=== PATIENT | female | born 1945 | race Caucasian/White ===

== ENCOUNTER 2016-10-18 09:50 | Day surgery (SDC) | payer MEDICARE, BC ==
[~2016-10-18 09:50] MED LIST: Acetaminophen TAB* 325 MG PO PRN; Buffered Lidocaine 0.9% SYRIN* 5 ML/SYR SYRINGE INTRADERM ONE; Ondansetron INJ* 2 MG/ML VIAL IV ONE
[2016-10-18] MEDS ORDERED: Ondansetron INJ* 2 MG/ML VIAL ONE (10:14)
[2016-10-18] MEDS ORDERED: Midazolam* 1 MG/ML 2 ML VIAL (2 MG) ONE ×2 (11:46→12:31)
[2016-10-18 13:00] VITALS: BP 147/79
[2016-10-18] MEDS ORDERED: acetaZOLAMIDE TAB* 250 MG ONE (17:06)
[2016-10-18] MEDS ORDERED: Phenylephrine 2.5% OPTH.SOL* 2 ML BTL ONE (17:06)
[2016-10-18] MEDS ORDERED: Cyclopentolate 1% OPTH.SOL* 2 ML BTL ONE (17:06)
[2016-10-18] MEDS ORDERED: Lidocaine 1% MPF* 2 ML VIAL ONE (17:06)
[2016-10-18] MEDS ORDERED: Flurbiprofen 0.03% OPTH.SOL* 2.5 ML BTL ONE (17:06)
[2016-10-18] MEDS ORDERED: Neomycin/Polymy/Dex OPTH.SUSP* MAXITROL 0.1% 5 ML ONE (17:06)
[2016-10-18] MEDS ORDERED: Proparacaine 0.5% OPHTH.SOL* 15 ML BTL ONE (17:07)
[2016-10-18] MEDS ORDERED: Povidone Iodine 5% OPTH* 30 ML BTL ONE (17:07)
[2016-10-18] MEDS ORDERED: Ketorolac 0.5% OPHTH (NF) 0.5 % 5 ML BTL ONE (17:08)
--- NOTE | 2016-10-19 03:14 | OP ---
DATE OF OPERATION: 10/18/16 [facility] DATE OF : 41 SURGEON: Bayron Aragon M.D. PREOPERATIVE DIAGNOSIS: Cataract, left eye. POSTOPERATIVE DIAGNOSIS: Cataract, left eye. OPERATIVE PROCEDURE: Phacoemulsification, left eye with IOL. DESCRIPTION OF PROCEDURE: The patient was brought to the operating room after being given 1/2% Alcaine with epinephrine drops in the preoperative area. The eye was prepped and draped in the usual sterile fashion. Sterile drape and eyelid speculum were placed. Again, topical 1/2% Alcaine with epinephrine was given. A paracentesis incision was made at the 3 o'clock position with the No.75 blade. Clear cornea incision 2.2 x 2.2-mm was created at the 6 o'clock position starting at the anterior limbus using the 2.2-mm keratome. The anterior chamber was irrigated with 0.4 mL of 1% non-preservative intracameral lidocaine and filled with DisCoVisc. A capsulorrhexis was completed using the cystotome and the Utrata forceps. Hydrodissection was performed with balanced salt solution. The lens nucleus was removed with the Phacoemulsification handpiece without incident. Cortex was removed with the irrigation-aspiration handpiece. The capsular bag was re-inflated using DisCoVisc and an [id number] implant was inserted with the shooter. The pupil was very small prior to capsulorrhexis and Malyugin ring was used to dilate the pupil and removed after insertion of the lens. The irrigation-aspiration handpiece was used to remove all residual DisCoVisc. The eye was refilled with balanced salt solution and the wound checked and found to be watertight. Topical Maxitrol drops were given. [id number] #: [id number] MTDD
== END 2016-10-18 13:11 | disposition home or self-care (01) ==
LOC: OREAST 09:50
PROVIDERS: ATTEND Specialist
DX: H25.812 Combined forms of age-related cataract, left eye (principal); Z87.891 Personal history of nicotine dependence; I10 Essential (primary) hypertension
CPT/HCPCS: A9270-GY; J2250; J2405; V2632

== ENCOUNTER 2016-10-25 07:43 | Day surgery (SDC) | payer MEDICARE, BC ==
[~2016-10-25 07:43] MED LIST changes: -Ondansetron INJ* 2 MG/ML VIAL IV ONE
[2016-10-25] MEDS ORDERED: Ketorolac 0.5% OPHTH (NF) 0.5 % 5 ML BTL ONE (09:05)
[2016-10-25] MEDS ORDERED: Povidone Iodine 5% OPTH* 30 ML BTL ONE (09:06)
[2016-10-25] MEDS ORDERED: acetaZOLAMIDE TAB* 250 MG ONE (09:06)
[2016-10-25] MEDS ORDERED: Cyclopentolate 1% OPTH.SOL* 2 ML BTL ONE (09:06)
[2016-10-25] MEDS ORDERED: Buffered Lidocaine 0.9% SYRIN* 5 ML/SYR SYRINGE ONE (09:06)
[2016-10-25] MEDS ORDERED: Proparacaine 0.5% OPHTH.SOL* 15 ML BTL ONE (09:06)
[2016-10-25] MEDS ORDERED: Neomycin/Polymy/Dex OPTH.SUSP* MAXITROL 0.1% 5 ML ONE (09:06)
[2016-10-25] MEDS ORDERED: Phenylephrine 2.5% OPTH.SOL* 2 ML BTL ONE (09:06)
[2016-10-25] MEDS ORDERED: Lidocaine 1% MPF* 2 ML VIAL ONE (09:06)
[2016-10-25] MEDS ORDERED: Midazolam* 1 MG/ML 2 ML VIAL (2 MG) ONE ×2 (09:32→10:10)
[2016-10-25] MEDS ORDERED: fentaNYL* 50 MCG/ML 2 ML VIAL (100 MCG VIAL) ONE (09:32)
[2016-10-25] MEDS ORDERED: Ondansetron INJ* 2 MG/ML VIAL ONE (09:32)
[2016-10-25 10:34] VITALS: BP 133/65
--- NOTE | 2016-10-26 04:07 | OP ---
DATE OF OPERATION: 10/25/16 - [facility] DATE OF : 41 SURGEON: Bayron Aragon MD PREOPERATIVE DIAGNOSIS: Cataract, right eye. POSTOPERATIVE DIAGNOSIS: Cataract, right eye. OPERATIVE PROCEDURE: Phacoemulsification, right eye with IOL. DESCRIPTION OF PROCEDURE: The patient was brought to the operating room after being given 1/2% Alcaine with epinephrine drops in the preoperative area. The eye was prepped and draped in the usual sterile fashion. Sterile drape and eyelid speculum were placed. Again, topical 1/2% Alcaine with epinephrine was given. A paracentesis incision was made at the 9 o'clock position with the No.75 blade. Clear cornea incision 2.2 x 2.2-mm was created at the 12 o'clock position starting at the anterior limbus using the 2.2-mm keratome. The anterior chamber was irrigated with 0.4 mL of 1% non-preservative intracameral lidocaine and filled with DisCoVisc. A capsulorrhexis was completed using the cystotome and the Utrata forceps. Hydrodissection was performed with balanced salt solution. The lens nucleus was removed with the Phacoemulsification handpiece without incident. Cortex was removed with the irrigation-aspiration handpiece. The capsular bag was re-inflated using DisCoVisc and an [id number] implant was inserted with the shooter. The Irrigation-aspiration handpiece was used to remove all residual DisCoVisc. The eye was refilled with balanced salt solution and the wound checked and found to be watertight. Topical Maxitrol drops were given. The pupil was only 3 mm. Prior to capsulorrhexis, a Malyugin ring was used to dilate the pupil, removed after the insertion of the lens. Indication for complex cataract surgery: Iris abnormalities requiring pupil dilation device. [id number] #: [id number] [facility]
== END 2016-10-25 10:43 | disposition home or self-care (01) ==
LOC: OREAST 07:43
PROVIDERS: ATTEND Specialist
DX: H25.811 Combined forms of age-related cataract, right eye (principal); Q13.2 Other congenital malformations of iris; I10 Essential (primary) hypertension
CPT/HCPCS: A9270-GY; J2250; J2405; J3010; V2632

== ENCOUNTER 2017-10-24 02:19 | Inpatient (IN) | payer BC, MEDICARE ==
[2017-10-24] MEDS ORDERED: NS 0.9% 1000 ML* 2,000 ML IV ONE (02:40)
[2017-10-24] MEDS ORDERED: Ondansetron INJ* 2 MG/ML VIAL IV ONE (02:40)
[2017-10-24] MEDS ORDERED: Morphine VIAL* 10 MG/ML 1 ML VIAL IV ONE (02:40)
--- NOTE | 2017-10-24 02:42 | ED ---
Abdominal Pain/Female - HPI Summary HPI Summary: This patient is a 72 year old F presenting to [facility] accompanied by friend with a chief complaint of RUQ abd pain that began yesterday. The patient rates the pain 10/10 in severity. Symptoms aggravated by nothing. Symptoms alleviated by nothing. Patient reports nausea, vomiting, and fever. Patient denies diarrhea. Patient reports having similar episodes previously, but these episodes have resolved on their own. - History of Current Complaint Chief Complaint: EDAbdPain Stated Complaint: ABD PAIN Time Seen by Provider: 10/24/17 02:37 Hx Obtained From: Patient ?: No Onset/Duration: Sudden Onset, Lasting Days, Still Present Timing: Constant Pain Intensity: 10 Allergies/Adverse Reactions: Allergies Allergy/AdvReac Type Severity Reaction Status Date / Time amoxicillin Allergy Vomiting Verified 10/24/17 02:24 Penicillins Allergy Vomiting Verified 10/24/17 02:24 mushrooms Allergy GI Upset Uncoded 10/24/17 02:24 PMH/Surg Hx/FS Hx/Imm Hx Previously Healthy: No Endocrine/Hematology History: Reports: Hx Thyroid Disease - ON MEDS Cardiovascular History: Reports: Hx Hypertension - BORDERLINE, ON DIERETIC Denies: Other Cardiovascular Problems/Disorders Musculoskeletal History: Reports: Hx Arthritis - HANDS AND LEGS Denies: Other Musculoskeletal History Sensory History: Reports: Hx Cataracts - bette, Hx Contacts or Glasses - READING Denies: Hx Hearing Aid Opthamlomology History: Reports: Hx Cataracts - bette, Hx Contacts or Glasses - READING - Cancer History Hx Chemotherapy: No Hx Radiation Therapy: No - Surgical History Surgery Procedure, Year, and Place: 1971, HYSTERECTOMY, [facility] Hx Anesthesia Reactions: No Infectious Disease History: No Infectious Disease History: Denies: Traveled Outside the [place] in Last 30 Days - Family History Known Family History: Positive: Other - Breast CA - Social History Occupation: Retired Lives: Alone Alcohol Use: None Substance Use Type: Reports: None Smoking Status (MU): Never Smoked Tobacco Amount Used/How Often: social 45 yrs ago Review of Systems Positive: Fever Positive: Abdominal Pain, Vomiting, Nausea. Negative: Diarrhea All Other Systems Reviewed And Are Negative: Yes Physical Exam - Summary Physical Exam Summary: Appearance: Well-appearing, Well-nourished, lying in bed comfortably Skin: Warm, dry, no obvious rash Eyes: sclera anicteric, no conjunctival pallor ENT: mucous membranes moist, pharynx appears normal Neck: Supple, Upper abd tenderness, more so on the right. Guarding. Rebound. Respiratory: Clear to auscultation, no signs of respiratory distress Cardiovascular: Normal S1, S2. No murmurs. Normal distal pulses in tibial and radial bilaterally. Abdomen: Soft, nontender, normal active bowel sounds present Musculoskeletal: Normal, Strength/ROM Intact Neurological: A&Ox3, awake and alert, mentation is normal, speech is fluent and appropriate Psychiatric: affect is normal, does not appear anxious or depressed Triage Information Reviewed: Yes Vital Signs On Initial Exam: Initial Vitals Temp Pulse Resp BP Pulse Ox 97.8 F 77 18 172/77 100 10/24/17 02:21 10/24/17 02:21 10/24/17 02:21 10/24/17 02:21 10/24/17 02:21 Vital Signs Reviewed: Yes Diagnostics - Vital Signs Vital Signs Temp Pulse Resp BP Pulse Ox 10/24/17 02:21 97.8 F 77 18 172/77 100 - Laboratory Result Diagrams: 10/24/17 02:51 10/24/17 02:51 Lab Statement: Any lab studies that have been ordered have been reviewed, and results considered in the medical decision making process. - Additional Comments Diagnostic Additional Comments: An EKG taken at 0254 reveals NSR at 67 BPM, P waves, QRS complex, and T waves are within normal limits, T waves and intervals are normal, no ischemic changes. Abdominal Pain Fem Course/Dx - Diagnoses Provider Diagnoses: Acute cholecystitis - Provider Notifications Discussed Care Of Patient With: Garret Collins Time Discussed With Above Provider: 03:45 Instructed by Provider To: Other - Consult with Dr. Collins (hospitalist) at 0345. He agrees to admit pt for further evaluation. Discharge - Sign-Out/Discharge Documenting (check all that apply): Patient Departure - Discharge Plan Condition: Guarded Disposition: ADMITTED TO [facility] Referrals: Alyssa Fonseca MD [Primary Care Provider] - - Billing Disposition and Condition Condition: GUARDED Disposition: Admitted to [facility] - Attestation Statements Document Initiated by Scribe: Yes Documenting Scribe: Елена Craft Provider For Whom Scribe is Documenting (Include Credential): Reji Yadav MD Scribe Attestation: IЕлена, scribed for Reji Yadav MD on 10/24/17 at 0437. Scribe Documentation Reviewed: Yes Provider Attestation: The documentation as recorded by the scribe, Елена Craft accurately reflects the service I personally performed and the decisions made by me, Reji Yadav MD
[2017-10-24 03:04] LABS: ABS Basophils 0.1 10^3/ul (0-0.2); ABS Eosinophils 0 10^3/ul (0-0.6); ABS Lymphocytes 1.4 10^3/ul (1.0-4.8); ABS Monocytes 0.4 10^3/ul (0-0.8); ABS Neutrophils 6.2 10^3/ul (1.5-7.7); ABS Nucleated RBC 0 10^3/ul; Eosinophil % 0.4 % (0-6); Hematocrit 42 % (35-47); Hemoglobin 14.6 g/dl (12.0-16.0); Lymphocyte % 16.9 % (25-47); Mean Corpuscular HGB Conc 35 g/dl (31-36); Mean Corpuscular Hemoglobin 32 pg (27-31); Mean Corpuscular Volume 91 fL (80-97); Mean Platelet Volume 8.2 um3 (7.4-10.4); Nucleated Red Blood Cells % 0; Platelet Count 301 10^3/ul (150-450); Red Blood Count 4.65 10^6/ul (4.00-5.40); Red Cell Distribution Width 13 % (10.5-15)
[2017-10-24 03:20] LABS: EGFR Non-African American 72.2 (>60)
[2017-10-24] MEDS ORDERED: Metoclopramide IV* 5 MG/ML 2 ML VIAL ONE (04:43)
[2017-10-24] MEDS ORDERED: Metoclopramide IV* 5 MG/ML 2 ML VIAL IV ONE (04:43)
[2017-10-24] MEDS ORDERED: HYDROmorphone INJ1* 1 MG/ML SYRINGE IV PRN (06:03)
[2017-10-24] MEDS ORDERED: Acetaminophen TAB* 325 MG PO PRN (06:03)
[2017-10-24] MEDS ORDERED: Ondansetron ODT TAB* 4 MG PO PRN (06:03)
[2017-10-24] MEDS ORDERED: NS 0.9% 1000 ML* 1,000 ML IV SCH (06:15)
--- NOTE | 2017-10-24 06:41 | HP ---
H&P (Free Text) History and Physical: PCP: Austen Fonseca MD Date/Time: 10/24/2017 2245 CC: abdominal pain HPI: Mrs Sorenson is a 72YO female HX HTN, hypothyroidism who presents with onset of epigastric & RUQ pain around 1800 last PM after eating a hamburger and fries around noon. The pain increased to severe associated with N/V becoming unbearable around 2200 prompting her to present for evaluation. Morphine makes the pain better, movement made it worse. She has had subjective F/C & sweats with this, but denies chest pain, SOB, black/bloody emesis, or other issues. She has had 2 similar episodes in the past that spontaneously resolved. Louisa Cruz MD surgery was consulted by ED, will evaluate in AM. PMedHx HTN hypothyroidism Ambulatory Orders Nursing to reconcile. 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 Father passed in his 60s 2nd complications of alcoholism. Brother 1 passed from bladder CA. Brother 2 passed from complications of alcoholism. ROS: as above, otherwise reviewed and all were negative vitals: Vital Signs Temp 36.6 C 10/24/17 02:21 Pulse 69 10/24/17 04:00 Resp 18 10/24/17 03:21 BP 177/86 10/24/17 03:58 Pulse Ox 99 10/24/17 04:00 Intake & Output 10/23/17 10/23/17 10/24/17 11:59 23:59 11:59 Weight 72.121 kg Constitutional: NAD, normally developed, overweight elderly white female HEENM: atraumatic; sclera/conjunctiva: anicteric/clear; hearing: clinically intact; oropharynx: clear, mucosa moist Neck: soft tissue: non-tender; thyroid: normal Pulmonary: clear to auscultation bilaterally, good aeration, no accessory muscle use CV: RR/RR, normal S1S2, no carotid bruit, no jugular venous distention, 2+ B DP/ PT, no edema Abdominal: soft, non-distended, mildly tender RUQ, no rebound/guarding/rigidity , hypoactive bowel sounds, no hepatosplenomegaly or masses, no costovertebral angle tenderness Musculoskeletal: general: grossly intact, non-tender Integumental: normal appearance and texture of exposed skin, no jaundice Psychiatric orientation: AA&O to PPS affect: calm mood: pleasant eye contact: good content: reliable responses: timely insight: good Testing: Lab Results 10/24/17 10/24/17 Range/Units 02:51 02:51 WBC 8.0 (3.5-10.8) 10^3/ul RBC 4.65 (4.00-5.40) 10^6/ul Hgb 14.6 (12.0-16.0) g/dl Hct 42 (35-47) % MCV 91 (80-97) fL MCH 32 H (27-31) pg MCHC 35 (31-36) g/dl RDW 13 (10.5-15) % Plt Count 301 (150-450) 10^3/ul MPV 8.2 (7.4-10.4) um3 Neut % (Auto) 76.8 (38-83) % Lymph % (Auto) 16.9 L (25-47) % Rosebud % (Auto) 5.2 (0-7) % Eos % (Auto) 0.4 (0-6) % Baso % (Auto) 0.7 (0-2) % Absolute Neuts (auto) 6.2 (1.5-7.7) 10^3/ul Absolute Lymphs (auto) 1.4 (1.0-4.8) 10^3/ul Absolute Monos (auto) 0.4 (0-0.8) 10^3/ul Absolute Eos (auto) 0 (0-0.6) 10^3/ul Absolute Basos (auto) 0.1 (0-0.2) 10^3/ul Absolute Nucleated RBC 0 10^3/ul Nucleated RBC % 0 Sodium 135 (135-145) mmol/L Potassium 3.1 L (3.5-5.0) mmol/L Chloride 100 L (101-111) mmol/L Carbon Dioxide 26 (22-32) mmol/L Anion Gap 9 (2-11) mmol/L BUN 17 (6-24) mg/dL Creatinine 0.78 (0.51-0.95) mg/dL Est GFR ( Amer) 87.4 (>60) Est GFR (Non-Af Amer) 72.2 (>60) BUN/Creatinine Ratio 21.8 H (8-20) Glucose 146 H (70-100) mg/dL Calcium 9.7 (8.6-10.3) mg/dL Total Bilirubin 0.50 (0.2-1.0) mg/dL AST 19 (13-39) U/L ALT 13 (7-52) U/L Alkaline Phosphatase 69 (34-104) U/L Troponin I 0.01 (<0.04) ng/mL Total Protein 7.4 (6.4-8.9) g/dL Albumin 3.9 (3.2-5.2) g/dL Globulin 3.5 (2-4) g/dL Albumin/Globulin Ratio 1.1 (1-3) Lipase 14 (11.0-82.0) U/L ECG, personally reviewed: NSR rate 67, diffuse mild ST depressions US RUQ: ordered, pending Impression: 72F HX HTN, hypothyroidism presents with epigastric/RUQ pain w/ N/V , suspect acute cholecystitis DIAGNOSIS & PLAN Primary epigastric/RUQ pain w/ N/V, suspect acute cholecystitis : pain control : formal US this AM : Louisa Cruz MD surgery consulted, will evaluate in AM : blood CX : supportive care abnormal ECG : doubt primary cardiac etiology to pain : telemetry : trend troponin Secondary HTN : review meds once reconciled : PRN IV hydralazine hypothyroidism : continue meds once reconciled Admission Rational: observation for further evaluation of abdominal pain DVTp: SCDs Code Status: DNR/I HCP: daughterOar
[2017-10-24 06:50] LABS: EGFR Non-African American 70.1 (>60)
[2017-10-24 07:34] LABS: ABS Basophils 0 10^3/ul (0-0.2); ABS Eosinophils 0 10^3/ul (0-0.6); ABS Lymphocytes 0.7 10^3/ul (1.0-4.8); ABS Monocytes 0.6 10^3/ul (0-0.8); ABS Neutrophils 9.8 10^3/ul (1.5-7.7); ABS Nucleated RBC 0 10^3/ul; Eosinophil % 0 % (0-6); Hematocrit 41 % (35-47); Hemoglobin 13.9 g/dl (12.0-16.0); Lymphocyte % 6.3 % (25-47); Mean Corpuscular HGB Conc 34 g/dl (31-36); Mean Corpuscular Hemoglobin 31 pg (27-31); Mean Corpuscular Volume 91 fL (80-97); Mean Platelet Volume 7.9 um3 (7.4-10.4); Nucleated Red Blood Cells % 0.1; Platelet Count 274 10^3/ul (150-450); Red Blood Count 4.49 10^6/ul (4.00-5.40); Red Cell Distribution Width 13 % (10.5-15); White Blood Count 11.1 10^3/ul (3.5-10.8)
--- NOTE | 2017-10-24 08:41 | RAD ---
HISTORY: RUQ pain, r/o cholecystitis COMPARISONS: None TECHNIQUE: Multiple transverse and longitudinal ultrasound images were obtained of the right upper quadrant of the abdomen using grayscale and color Doppler imaging. FINDINGS: LIVER: The liver is diffusely echogenic and coarse in echotexture, with decreased acoustic transmission. The liver is otherwise normal in shape, size, and contour. There is normal hepatopedal flow of the portal vein on Doppler imaging. BILIARY TREE: There is no intrahepatic or extrahepatic biliary dilatation. The common duct measures 0.6 cm. GALLBLADDER: Multiple gallstones are noted including within the neck of the gallbladder. There is no gallbladder wall thickening, pericholecystic fluid, or sonographic Nelson sign. PANCREAS: The head of the pancreas is unremarkable. The tail of the pancreas is not well visualized secondary to overlying bowel gas. RIGHT KIDNEY: The right kidney is normal in shape, size, contour, and echogenicity. There is no hydronephrosis or nephrolithiasis. The right kidney measures 10.9 x 4.5 x 5.3 cm. AORTA AND IVC: The aorta and IVC are unremarkable. FLUID: There are no pleural effusions. There is no free fluid within the hepatorenal recess. OTHER FINDINGS: None. IMPRESSION: 1. CHOLELITHIASIS WITHOUT SONOGRAPHIC FEATURES OF ACUTE CHOLECYSTITIS. STONES ARE NOTED WITHIN THE NECK OF THE GALLBLADDER. 2. FATTY INFILTRATION OF THE LIVER.
[2017-10-24] MEDS: Pantoprazole IV* 40 MG IV SCH (09:07)
[2017-10-24] MEDS: NS 0.9% w/ 40 Meq KCL 1000 ML* 1,000 ML IV SCH (10:42)
--- NOTE | 2017-10-24 10:53 | CONS ---
CC: Alyssa Fonseca MD * CONSULTATION REPORT: DATE OF CONSULT: 10/24/17 REASON FOR CONSULTATION: Right upper quadrant abdominal pain. HISTORY OF PRESENT ILLNESS: Yajaira Sorenson is a 72-year-old female who reports episodic right upper quadrant and epigastric abdominal pain with fatty food intolerance. She had a third episode, which occurred yesterday afternoon after eating Lithuanian fries. She had her typical symptoms of epigastric/right upper quadrant abdominal pain with bloating and episodes of nausea and vomiting. She denies fevers, may have had some chills. The patient denies jaundice, tea colored urine or valarie colored stools. She notes that on prior evaluation by Dr. Fonseca she was suspected to have gallstones. PAST MEDICAL HISTORY: Significant for hypertension, hypothyroidism. PAST SURGICAL HISTORY: Cataract surgery. MEDICATIONS: 1. Potassium. 2. Multivitamin. 3. Levoxyl. 4. Hydrochlorothiazide. ALLERGIES: AMOXICILLIN/PENICILLINS and MUSHROOMS. FAMILY HISTORY: Noncontributory. SOCIAL HISTORY: She does not smoke. Single and retired. PHYSICAL EXAMINATION: She is 5 feet 2 inches tall, 159 pounds, BMI 29. Temperature 97.8, blood pressure 158/71, pulse 69, respirations 18, and O2 sat 98% on room air. Head is normocephalic and atraumatic. Sclerae anicteric. Abdomen: Without scars. Bowel sounds present, soft. No tympany. Tenderness in the epigastrium and right upper quadrant with positive Nelson's sign. DIAGNOSTIC STUDIES/LAB DATA: WBC is 11.1. Chemistries: Normal LFTs, potassium was 3.2. Radiographic studies: Ultrasound pending. IMPRESSION: This 72-year-old female with signs and symptoms consistent with acute cholecystitis likely on the basis of gallstones. PLAN/RECOMMENDATION: I discussed the findings with the patient and her friend who accompanied her. I agreed with the plan for admission and IV antibiotics. N.p.o. status with plan for laparoscopic cholecystectomy this admission. We will follow up on the results of the ultrasound. [facility] will follow. [id number] #: [id number] MTDD
[2017-10-24] MEDS: KCL 20 MEQ/100 ML IVPREMIX* 20 MEQ/100 ML BAG IV SCH ×2 (11:47→17:54)
--- NOTE | 2017-10-24 13:59 | PN ---
Progress Note - Progress Note Date of Service: 10/24/17 Note: Her GBUS shows no wall thickening or pericholecystic fluid, however she has stones in the neck and has a Nelson sx. In addition her WBCs are elevating. I discussed with Dr. Fonseca and I will start IV abx. As her reaction to PCN is "GI upset" she is not allergic and will therefore order cefoxitin 2g IV q8. Per Dr. Fonseca, pt to have Cardiology consult. OR tentatively scheduled for Sunday, pending Cardiology evaluation
--- NOTE | 2017-10-24 14:26 | ECHO ---
Patient: AFTAB MARSH [facility] Rec#: [id number] : 1945 Date: 10/24/2017 Age: 72y Height: 157.48 cm / 62.0 in Weight: 72.12 kg / 159.0 lbs Sex: F BSA: 1.73 Room#: 332 Admit Date#: 10/24/2017 Type: Inpatient Referring: Alyssa Fonseca MD Reading: Lizbet Tinoco MD Engineering Faculty: Kayli Linton [facility] Transthoracic Echocardiogram Indication: Elevated Troponins BP: 147/66 HR: 68 Rhythm: NSR Findings History: Elevated troponins,HTN,right upper quardant pain. Technical Comments: The study quality is good. Completed at 1404. Left Ventricle: Mild concentric left ventricular hypertrophy is observed. Global left ventricular wall motion and contractility are within normal limits. The left ventricle appears hyperdynamic. The estimated ejection fraction is 60-65%. Abnormal left ventricular diastolic function is observed. Left Atrium: The left atrial chamber size is normal. Right Ventricle: The right ventricular cavity size is normal. The right ventricular global systolic function is normal. Right Atrium: The right atrial cavity size is normal. Aortic Valve: The aortic valve is trileaflet. There is a trace of aortic regurgitation. There is no evidence of aortic stenosis. Mitral Valve: The mitral valve leaflets are mildly thickened. There is mild mitral regurgitation. There is no evidence of mitral stenosis. Tricuspid Valve: The tricuspid valve leaflets are normal. There is mild tricuspid regurgitation. The right ventricular systolic pressure is estimated at 38 mmHg. There is evidence of mild pulmonary hypertension. There is no tricuspid stenosis. Pulmonic Valve: The pulmonic valve appears normal. There is trace to mild pulmonic regurgitation. There is no pulmonic stenosis. Pericardium: A pericardial fat pad is visualized. Aorta: There is no dilatation of the ascending aorta. There is no dilatation of the aortic arch. There is no dilation of the aortic root. Pulmonary Artery: The main pulmonary artery appears normal. Venous: The venous system is not well visualized. Due to patient's abdominal pain. Conclusions Mild concentric left ventricular hypertrophy is observed. The estimated ejection fraction is 60-65%. Abnormal left ventricular diastolic function is observed. The right ventricular global systolic function is normal. There is a trace of aortic regurgitation. There is mild mitral regurgitation. There is mild tricuspid regurgitation. There is evidence of mild pulmonary hypertension estimated at 38 mmHg. Measurements Name Value Normal Range RVIDd (AP) 2D 3 cm (0.9 - 2.6) RVDdMajor (2D) 2.7 cm (2.2 - 4.4) RAd ISD 4CH 4.4 cm (3.4 - 4.9) RA (A4C)W 3.8 cm (2.9 - 4.6) IVSd (2D) 1.1 cm (0.6 - 1) LVPWd (2D) 1.1 cm (0.6 - 1) LVIDd (2D) 3.6 cm (3.6 - 5.4) LVIDs (2D) 2.1 cm - LV FS (2D) 42 % (25 - 45) Aortic Annulus 1.7 cm (1.4 - 2.6) Ao root diameter (2D) 2.9 cm (2.1 - 3.5) Ascending Ao 3.2 cm (2.1 - 3.4) Aortic arch 2.8 cm (1.8 - 3.4) Descending Ao 0.5 cm - LA dimension (AP) 2D 3 cm (2.3 - 3.8) LAd ISD 4CH 4.9 cm (2.9 - 5.3) LA ISD 4CH W 3.6 cm (2.5 - 4.5) Name Value Normal Range LA ESV SP 4CH (A/L) 34 ml - LA ESV SP 2CH (A/L) 34 ml - LA ESV BP (A/L) 34 ml - LA ESV BP (A/L) index 19.65 ml/m2 - LA ESV SP 4CH (MOD) 31 ml - LA ESV SP 2CH (MOD) 32 ml - Name Value Normal Range MV E-wave Vmax 0.8 m/sec - MV deceleration time 247 msec - MV A-wave Vmax 1.1 m/sec - MV E:A ratio 0.73 ratio - LV septal e' Vmax 0.08 m/sec - LV lateral e' Vmax 0.08 m/sec - Name Value Normal Range AV Vmax 1.6 m/sec - AV VTI 39.1 cm - AV peak gradient 9.97 mmHg - AV mean gradient 5.34 mmHg - LVOT Vmax 1.2 m/sec - LVOT VTI 33.7 cm - LVOT peak gradient 5.94 mmHg - LVOT mean gradient 3.7 mmHg - Name Value Normal Range MR Vmax 6 m/sec - MR VTI 162 cm - Name Value Normal Range TR Vmax 2.7 m/sec - TR peak gradient 30 mmHg - RAP 8 mmHg - RVSP 38 mmHg - Name Value Normal Range PV Vmax 0.8 m/sec - PV peak gradient 2.35 mmHg -
[2017-10-24] MEDS: ceFOXitin 2 GM IVPREMIX* 2 GM/50 ML BAG IVPB SCH ×2 (16:11→22:04)
--- NOTE | 2017-10-24 16:23 | PN ---
Cardiology Progress Note Date of Service: 10/24/17 - CC: nausea, asked to preop evaluate for cholecystectomy. 72 yo with no prior cardiac history admitted with post prandial abdominal pain. Work up c/w cholecystitis. ECG showed mild ST depression and serial troponins mildly elevated. No hx angina/exercise induced symptoms of any sort and the patient is active, 5 hours exercise weekly. CAD risks + HTN, LDL cholesterol, hyperglycemia, negative for FHx. Currently nauseated getting IV KCl. VSS, exam unremarkable. Sodium 137 mmol/L (135-145) 10/24/17 06:38 Potassium 3.2 mmol/L (3.5-5.0) L 10/24/17 06:38 BUN 17 mg/dL (6-24) 10/24/17 06:38 Creatinine 0.80 mg/dL (0.51-0.95) 10/24/17 06:38 Hemoglobin A1c 5.2 % (4.0-5.6) 10/24/17 12:53 Calcium 9.5 mg/dL (8.6-10.3) 10/24/17 06:38 Magnesium 1.8 mg/dL (1.9-2.7) L 10/24/17 12:53 AST 19 U/L (13-39) 10/24/17 02:51 ALT 13 U/L (7-52) 10/24/17 02:51 Abnormal Lab Results 10/24/17 10/24/17 10/24/17 02:51 02:51 06:38 WBC 8.0 RBC 4.65 Hgb 14.6 Hct 42 MCV 91 MCH 32 H MCHC 35 RDW 13 Plt Count 301 MPV 8.2 Neut % (Auto) 76.8 Lymph % (Auto) 16.9 L [place] % (Auto) 5.2 Eos % (Auto) 0.4 Baso % (Auto) 0.7 Absolute Neuts (auto) 6.2 Absolute Lymphs (auto) 1.4 Absolute Monos (auto) 0.4 Absolute Eos (auto) 0 Absolute Basos (auto) 0.1 Absolute Nucleated RBC 0 Nucleated RBC % 0 Sodium 135 137 Potassium 3.1 L 3.2 L Chloride 100 L 100 L Carbon Dioxide 26 27 Anion Gap 9 10 BUN 17 17 Creatinine 0.78 0.80 Est GFR ( Amer) 87.4 84.8 Est GFR (Non-Af Amer) 72.2 70.1 BUN/Creatinine Ratio 21.8 H 21.3 H Glucose 146 H 145 H Hemoglobin A1c Calcium 9.7 9.5 Magnesium Total Bilirubin 0.50 AST 19 ALT 13 Alkaline Phosphatase 69 Total Creatine Kinase 94 CK-MB (CK-2) 2.0 Troponin I 0.01 0.06 H* C-Reactive Protein 16.32 H Total Protein 7.4 Albumin 3.9 Globulin 3.5 Albumin/Globulin Ratio 1.1 Lipase 14 10/24/17 10/24/17 10/24/17 07:21 12:53 12:53 WBC 11.1 H RBC 4.49 Hgb 13.9 Hct 41 MCV 91 MCH 31 MCHC 34 RDW 13 Plt Count 274 MPV 7.9 Neut % (Auto) 87.9 H Lymph % (Auto) 6.3 L [place] % (Auto) 5.5 Eos % (Auto) 0 Baso % (Auto) 0.3 Absolute Neuts (auto) 9.8 H Absolute Lymphs (auto) 0.7 L Absolute Monos (auto) 0.6 Absolute Eos (auto) 0 Absolute Basos (auto) 0 Absolute Nucleated RBC 0 Nucleated RBC % 0.1 Sodium Potassium Chloride Carbon Dioxide Anion Gap BUN Creatinine Est GFR ( Amer) Est GFR (Non-Af Amer) BUN/Creatinine Ratio Glucose Hemoglobin A1c 5.2 Calcium Magnesium 1.8 L Total Bilirubin AST ALT Alkaline Phosphatase Total Creatine Kinase CK-MB (CK-2) Troponin I 0.07 H* C-Reactive Protein Total Protein Albumin Globulin Albumin/Globulin Ratio Lipase ECG: NSR, mild ST depression lateral leads and inferior leads. ECHO: LVH, normal wall motion and good valve function. A/P: 72 yo with acute cholecystitis. Mild abnormalities of ECG and Trops. Normal CK. No anginal hx. If trops stay in low/equivocal range then continue with surgical plans w/o additional cardiac testing. Options for amolodipine or low dose betablocker for cardiac protection from demand ischemia. Agree with electrolyte replacement. Hx statin intolerance, so I will not treat at this point in time. Full dictation to follow.
--- NOTE | 2017-10-24 20:45 | CONS ---
CC: Alyssa Fonseca MD; Segundo Cruz MD CARDIOLOGY CONSULTATION REPORT: DATE OF CONSULT: 10/24/17 REASON FOR CONSULT: Mild elevation in troponins and abnormal ECG. CHIEF COMPLAINT: Right upper quadrant pain and nausea. HISTORY OF PRESENT ILLNESS: Ms. Sorenson is a 72-year-old woman with no prior cardiac history, who ate a hamburger around noon on 10/24/17 and developed right upper quadrant pain and nausea that became progressively worse over the afternoon and evening associated with nausea and vomiting and she presented to the emergency room. She states she had had 2 or 3 similar, but much milder episodes also associated with meals in the past. On admission, the patient had some mild ST depression in the inferolateral leads and troponins were checked serially and her second and third troponin were mildly elevated. The patient has been very active including regular exercise at the gym including weightlifting, machines, as well as active in gardening and never had exercise- induced symptoms. No problems climbing stairs. No recent decline in exercise ability. She has never had any of the nausea, abdominal pain, or any other symptoms related to exertion. The patient denies orthopnea, PND, racing or palpitations of the heart. Currently, the patient's chief complaint is nausea only. PAST MEDICAL HISTORY: The patient has a past medical history of hypertension; hypothyroid disease; urinary tract infections, recurrent, followed by Dr. Duncan. PAST SURGICAL HISTORY: Cataract extraction, appendectomy, hysterectomy. OUTPATIENT MEDICATIONS: Included: 1. Hydrochlorothiazide 25 mg a day. 2. Levoxyl 75 mcg a day. 3. MultiVites. 4. Potassium 20 mEq a day. Current inpatient medications include: 1. Potassium replacement. 2. Zofran p.r.n. 3. Protonix IV 40 mg a day. 4. Dilaudid p.r.n. 5. Cefoxitin 2 g q.8 hours. 6. Tylenol p.r.n. ALLERGIES: Include AMOXICILLIN, PENICILLINS, MUSHROOMS, and STATIN INTOLERANCE , but she is not sure which one. FAMILY HISTORY: Significant in that her mother at age 62 with complications of osteomyelitis. Her father passed in his 60s with alcohol history. She denies any history of any cardiac problems. No history of stents , bypass surgery, angina, or heart attacks. 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 She does not smoke now. Smoked very briefly many years ago. Drinks a couple of alcoholic beverages weekly. REVIEW OF SYSTEMS: As above. No recent fevers, chills, sweats until her acute illness yesterday. No recent diarrhea or constipation. No recent dysuria or hematuria. No change in functional ability. No orthopnea, no PND. No chest, neck, arm, jaw pain. No change in diet or medications recently. All other 15- point review of systems was negative. It is positive for having had a wasp stinger in the right lower extremity earlier this week. PHYSICAL EXAM: On exam, the patient is a short overweight older woman lying 20 degrees, appears reasonably comfortable, in no acute medical distress. She is 5 feet 2 inches, weighs 159 pounds with a BMI of 29. Vitals: Blood pressure 128/48, pulse is 63, oxygen saturation 99% on room air, temperature 98 degrees. She has been afebrile since admission. HEENT: Pupils are equal and round. Mucous membranes moist. Neck: Thick, but no appreciable lymphadenopathy or thyromegaly. Good carotid pulses. No audible bruits. Breath sounds are clear with good effort. No wheezes, rales or rhonchi. Coronary: S1, S2 regular. No murmurs, rubs, or extra systole. Abdomen: Active bowel sounds and soft, formal exam not done. No bruits heard though. Good femoral pulses without bruits. The distal extremities are warm and free of edema. DIAGNOSTIC STUDIES/LAB DATA: Echocardiogram from 10/24/17 shows mild left ventricular hypertrophy. Normal wall motion in all regions with an ejection fraction of 60% to 65%. Good valve function; trace aortic, mild mitral and mild tricuspid insufficiency; and PA pressure mildly elevated at 38 mmHg. EKG on admission at 3 a.m. on 10/24/17 shows normal sinus rhythm, 67 beats a minute, QRS axis of 0, normal AV and IV conduction times, and mild [address] depression in the precordial leads V3 through V6 and inferior leads 2, 3, and aVF. Repeat EKG at 10:19 this morning, not significantly changed. Per verbal report with Dr. Alyssa Fonseca, these ST changes are new compared with her EKG of 2004. Abdominal ultrasound shows cholelithiasis without evidence of acute cholecystitis. Stones noted within the neck of the gallbladder and she had fatty liver infiltration. Labs: White count 11.1, hemoglobin 13.9, hematocrit 41, platelets 274,000. Sodium 137, potassium 3.2, chloride 100, glucose 145, BUN 17, creatinine 0.8, calcium 9.7. Hemoglobin A1c 5.2. Magnesium 1.8. CPK 94. MB of 2. Troponin # 1 of 0.01. Troponin #2 of 0.06. Troponin #3 of 0.07. C-reactive protein 16.3. Lipids from 01/15/17 show total cholesterol of 275, triglycerides 171, HDL cholesterol 57, LDL cholesterol 183. SUMMARY: In summary, Yajaira Sorenson is a 72-year-old woman who presented with a story consistent with acute cholecystitis. The evidence of gallstones and physical exam are consistent with acute cholecystitis, scheduled for possible laparoscopic cholecystectomy. The patient has mild elevation in troponins and mild ST depression in the inferior and lateral leads with a history of hypertension and evidence of mild hypertensive heart disease on her echo. For the elevated troponins, this could be demand ischemia from her acute illness and hypertensive heart disease. This could represent ischemia from large vessel disease but I may have a lower suspicion of this as the patient has been extremely active on a regular basis at the gym and around the house with no anginal symptoms. As the patient is angina free with only borderline elevation in troponins, normal wall motion on echo, I feel she can proceed to surgery without additional cardiac testing. I do not recommend initiation of a statin now as she has been intolerant in the past. Options to minimize ischemia from any mechanism could include amlodipine or beta-massiel. I agree with potassium and magnesium repletion that is ongoing and supportive care with hydration and antibiotics. Additional recommendations will be made pending her clinical course and response to the above treatments. Thank you for allowing me to assist in this nice woman's care. [id number]/[facility] #: [id number] [place]ER[place]
[2017-10-25] MEDS: NS 0.9% w/ 40 Meq KCL 1000 ML* 1,000 ML IV SCH ×2 (04:05→18:33)
[2017-10-25 05:59] LABS: Hematocrit 37 % (35-47); Hemoglobin 12.7 g/dl (12.0-16.0); Mean Corpuscular HGB Conc 35 g/dl (31-36); Mean Corpuscular Hemoglobin 32 pg (27-31); Mean Corpuscular Volume 91 fL (80-97); Mean Platelet Volume 8.1 um3 (7.4-10.4); Platelet Count 255 10^3/ul (150-450); Red Blood Count 4.04 10^6/ul (4.00-5.40); Red Cell Distribution Width 13 % (10.5-15); White Blood Count 7.3 10^3/ul (3.5-10.8)
[2017-10-25] MEDS: ceFOXitin 2 GM IVPREMIX* 2 GM/50 ML BAG IVPB SCH ×3 (06:08→21:32)
[2017-10-25 06:30] LABS: EGFR Non-African American 89.1 (>60)
[2017-10-25] MEDS: Pantoprazole IV* 40 MG IV SCH (09:12)
[2017-10-25] MEDS ORDERED: Buffered Lidocaine 0.9% SYRIN* 5 ML/SYR SYRINGE INTRADERM ONE (14:26)
--- NOTE | 2017-10-25 16:27 | PN ---
Progress Note - Progress Note Date of Service: 10/25/17 SOAP: Subjective: Better today with less pain and no nausea. Objective: Vital Signs Temp 98.3 F 10/25/17 16:06 Pulse 67 10/25/17 16:06 Resp 18 10/25/17 16:06 BP 152/55 10/25/17 16:06 Pulse Ox 97 10/25/17 16:06 Intake & Output 10/24/17 10/25/17 10/25/17 18:59 06:59 18:59 Intake Total 273 891 55 Output Total 800 2550 600 Balance -527 -1659 -545 Weight 159 lb Intake: IV Fluids 118 791 NS 118 NS (0.9%) 40 meq KCL 791 IVPB 100 Potassium 100 Medicated IV 155 55 Cefoxitine 55 55 Potassium Chloride 20 mEq 100 Oral 0 0 Output: Urine 800 2550 600 Gen: NAD Abd: ND, soft, tender in RLQ to mod palpation. Laboratory Results - last 24 hr 10/24/17 10/25/17 10/25/17 19:58 05:30 05:30 WBC 7.3 RBC 4.04 Hgb 12.7 Hct 37 MCV 91 MCH 32 H MCHC 35 RDW 13 Plt Count 255 MPV 8.1 Sodium 137 Potassium 3.7 Chloride 108 Carbon Dioxide 25 Anion Gap 4 BUN 8 Creatinine 0.65 Est GFR ( Amer) 107.8 Est GFR (Non-Af Amer) 89.1 BUN/Creatinine Ratio 12.3 Glucose 88 Calcium 8.4 L Troponin I 0.06 H* 0.04 H* Assessment: Acute Cholecystitis. Plan: IV abx. NPO status. Laparoscopic cholecystectomy on 10/26. Per Cardiology, no benefit from additional testing.
[2017-10-26] MEDS ORDERED: Buffered Lidocaine 0.9% SYRIN* 5 ML/SYR SYRINGE INTRADERM ONE (06:00)
[2017-10-26] MEDS: ceFOXitin 2 GM IVPREMIX* 2 GM/50 ML BAG IVPB SCH ×3 (06:13→22:17)
[2017-10-26 07:22] LABS: EGFR Non-African American 74.4 (>60)
[2017-10-26] MEDS: Pantoprazole IV* 40 MG IV SCH (07:53)
[2017-10-26] MEDS ORDERED: Lidocaine 2% PF * 5 ML VIAL ONE (08:52)
[2017-10-26] MEDS ORDERED: Propofol* 10 MG/ML 20 ML BTL IV PUSH ONE (08:52)
[2017-10-26] MEDS ORDERED: Rocuronium* 10 MG/ML VIAL ONE (08:56)
[2017-10-26] MEDS ORDERED: Midazolam* 1 MG/ML 2 ML VIAL (2 MG) ONE (08:57)
[2017-10-26] MEDS ORDERED: fentaNYL* 50 MCG/ML 2 ML VIAL (100 MCG VIAL) ONE (08:57)
[2017-10-26] MEDS ORDERED: Esmolol* 10 MG/ML 10 ML (100 mg) ONE (09:15)
[2017-10-26] MEDS ORDERED: EPINEPHrine SYR 0.1 MG/ML* (1:10,000) SYRINGE ONE (09:26)
[2017-10-26] MEDS ORDERED: Sterile Water for Inj* 10 ML ONE (09:27)
[2017-10-26] MEDS ORDERED: Sterile Water for Inj* 20 ML ONE (09:29)
[2017-10-26] MEDS ORDERED: Phenylephrine INJ* 10 MG/ML 1 ML VIAL (10 MG) ONE (09:29)
[2017-10-26] MEDS ORDERED: Glycopyrrolate IV* 0.2 MG/ML 1 ML VIAL ONE ×2 (10:19→13:40)
[2017-10-26] MEDS ORDERED: Neostigmine Methylsulfate* 1 MG/ML 10 ML VIAL (1 mg/ml) ONE ×2 (10:19→13:40)
[2017-10-26] MEDS ORDERED: Ropivacaine* 2 MG/ML 20 ML VIAL (0.2%) ONE (11:48)
[2017-10-26] MEDS ORDERED: Bupivacaine 0.25% W/EPI* 10 ML SDV ONE ×2 (11:50)
[2017-10-26] MEDS ORDERED: ceFOXitin 2 GM IVPREMIX* 2 GM/50 ML BAG ONE (12:00)
[2017-10-26] MEDS ORDERED: HYDROmorphone INJ* 0.5 MG/0.5 ML SYRINGE IV PRN (13:26)
[2017-10-26] MEDS ORDERED: DiMENhydriNATE IV* 50 MG/ML VIAL IV PUSH PRN (13:26)
[2017-10-26] MEDS ORDERED: Naloxone* 0.4 MG/ML 1 ML VIAL IV PRN (13:26)
[2017-10-26] MEDS ORDERED: Ketorolac INJ* 30 MG/ML 1 ML VIAL ONE (13:39)
[2017-10-26] MEDS ORDERED: HYDROmorphone INJ* 0.5 MG/0.5 ML SYRINGE ONE (13:42)
[2017-10-26] MEDS ORDERED: HYDROcodone/ACETAMIN 5-325 MG* 1 TAB PO PRN (14:05)
--- NOTE | 2017-10-26 14:50 | BRIEFOPN ---
Brief Operative Note - Surgery Procedures: PRE/POSTOP DX: ACUTE CHOLECYSTITIS PROC: LAP CHOLECYSTECTOMY SURG: MECENAS ASSIST: STEF ANES: GET; KATLYN EBL: 30ML IVF: CRYST SPEC: GALLBLADDER/CONTENTS DRAIN/COMPL: NONE COND: STABLE FINDINGS: ACUTE CHOLECYSTITIS WITHOUT GANGRENE; GALLSTONE IN NECK OF GB.
[2017-10-27] MEDS: ceFOXitin 2 GM IVPREMIX* 2 GM/50 ML BAG IVPB SCH (05:37)
[2017-10-27 07:52] VITALS: BP 122/68
[2017-10-27] MEDS: Pantoprazole IV* 40 MG IV SCH (08:15)
--- NOTE | 2017-10-27 11:39 | DS ---
CC: Dr. Cruz * DISCHARGE SUMMARY: DATE OF ADMISSION: 10/24/17 DATE OF DISCHARGE: 10/27/17 DISCHARGE DIAGNOSES: 1. Acute cholecystitis, cholelithiasis. 2. Hypertension. 3. Hypothyroidism. 4. Hyperlipidemia with intolerance to statins. 5. Elevated troponins, probable stress ischemia. 6. Hypokalemia, resolved, mild hypomagnesemia. 7. Left ventricular hypertrophy, on echocardiogram, with diastolic dysfunction. 8. Fatty liver on ultrasound. HISTORY: Yajaira Sorenson is a 72-year-old woman, admitted with abdominal pain in the right upper quadrant and epigastrium following fatty food. She had had 2 previous episodes. Please see the dictated admission note for the details of the present illness, past medical history, family history, social and personal history, review of systems, and physical examination. LABORATORY DATA: CBC on admission, WBC 8, H and H 14.6/42, MCV 91, PLT 301K. White count went up to 11.1 on 10/24/17, 7.3 on 10/25/17. Chemistries on admission: Sodium 135, potassium 3.1, chloride 100, CO2 26, BUN and creatinine 17/0.78, glucose 146. Rest of the comprehensive metabolic panel was within normal limits. Magnesium was 1.8. Troponins were trended over from 10/24/17, through discharge and was 0.01, 0.06, 0.07, 0.06, 0.04, 0.01, 0.01. C-reactive protein was 16.32 on 10/24/17. Hemoglobin A1c was normal at 5.2. CK and CK-MB were both normal on 10/24/17, when troponin was 0.06. Blood cultures x2 with no growth. IMAGING: Showed ultrasound of the abdomen, right upper quadrant showed cholelithiasis without acute cholecystitis, stones were noted within the neck of the gallbladder, fatty infiltration of the liver was noted. EKG on admission 10/24/17, showed sinus rhythm, possible posterior infarct, ST- T wave changes. No previous EKG available. Repeat EKG same day with no significant change. EKG on 10/25/17, showed mild ST-T wave changes improved. EKG on 10/26/17, showed sinus rhythm, no significant change. Echocardiogram , showed concentric LVH, EF 60% to 65%, abnormal diastolic function, trace aortic regurgitation, mild mitral regurgitation, mild tricuspid regurgitation, mild pulmonary hypertension at 38. CONSULTATION: Surgical 10/24/17, Dr. Cruz thought the patient had acute cholecystitis on the basis of gallstones, started her on IV cefoxitin and planned for laparoscopic cholecystectomy. Cardiovascular consultation, 10/24/17 , Dr. Lizbet Tinoco felt the patient had probable stress ischemia, mild elevation of troponins, felt that she could have surgery without additional cardiac testings based on her good exercise tolerance. Based on previous history of statins intolerance, did not give her a statin, I felt that a stress test could be done when she had recovered from surgery. She agreed with electrolyte replacement and supportive care with hydration and antibiotics. SURGICAL PROCEDURE: 10/26/17, laparoscopic cholecystectomy with findings of acute cholecystitis, gallstones in the neck of the bladder, no gangrene. HOSPITAL COURSE: The patient was admitted. She was placed on IV fluids, n.p.o. She received surgical consultation. She continued to have pain on , which was somewhat improved. She only received 1 dose of morphine in the emergency room. Postoperatively for pain, she received only Tylenol. She was started on antibiotics by Dr. Cruz after he consulted on her. Her troponins were trended. She was seen in Cardiology consultation by Dr. Tinoco (see above) . She did feel better prior to surgery. Her potassium was repleted. She was also seen in followup Cardiology consultation by Dr. Martinez who agreed with the current plan. At the time on 10/26/17, she underwent laparoscopic cholecystectomy, she did well. She was able to eat without discomfort afterwards. She was up walking around on 10/27/17. The stress ischemia had resolved. I discussed with her and the body and frame man and discussed an outpatient stress test when she recovers. She is being discharged with resumption of her previous medications. She is to be on a light, low-fat diet. Activity as tolerated. She will follow up with Dr. Cruz in 5 to 7 days. DISCHARGE MEDICATIONS: Her medications at the time of discharge, 1. Levoxyl 75 mcg a day. 2. Potassium chloride 10 mEq 2 a day. 3. Chlorthalidone 25 mg 1 a day. 4. Aspirin 81 mg 1 a day. 5. Tylenol 650 every 4 hours as needed for pain. [id number]/[facility] #: [id number] [facility]
--- NOTE | 2017-10-29 04:07 | OP ---
CC: Dr. Alyssa Fonseca; Dr. Lizbet Tinoco * DATE OF OPERATION: 10/26/17 - ROOM #332 DATE OF : 41 SURGEON: Segundo Cruz MD DELIVERY PROFESSIONAL: Dr. Bravo. ANESTHESIOLOGIST: Dr. Mae. ANESTHESIA: General endotracheal. PRE-OP DIAGNOSIS: Acute cholecystitis. POST-OP DIAGNOSIS: Acute cholecystitis. OPERATIVE PROCEDURE: Laparoscopic cholecystectomy. ESTIMATED BLOOD LOSS: 30 mL. IV FLUIDS: Crystalloids. SPECIMENS: Gallbladder. DRAINS: None. COMPLICATIONS: None. COUNTS: The instrument, needle, and sponge counts were correct. DESCRIPTION OF PROCEDURE: The patient was brought to the operating room and placed on the table supine. Sequential compression devices were placed on both lower extremities. General anesthesia was administered. She was positioned and padded appropriately. She received appropriate intravenous antibiotics. She was prepped and draped in the usual sterile fashion. A time-out was performed. Local anesthetic was infiltrated into the skin and soft tissue prior to making each incision. Entry into the abdomen was through a transumbilical incision using an open technique. After accessing the peritoneal cavity, a 5-mm trocar was placed. Carbon dioxide was insufflated to pressure of 15 mmHg. Under direct visualization, two 5-mm trocars were placed in the right upper quadrant and a 12-mm trocar was placed in the subxiphoid position. The inspection revealed acute inflammation of the gallbladder and omental adherence to the gallbladder. The gallbladder was retracted by grasping the fundus and the adhesions of the omentum to the gallbladder were taken down using combination of sharp dissection and cautery. The infundibulum was noted and there was a stone impacted in the neck. This was moved back so that the infundibulum could be grasped and then the peritoneum was scored medially and laterally from the gallbladder to expose the area of the junction with the cystic duct. Blunt dissection was used to dissect up the cystic duct and cystic artery obtaining a critical view before clipping each duct and dividing it. Gallbladder was then freed from its attachments to the liver bed using the cautery. Several inadvertent cholecystotomies were made and suctioning was used to aspirate any bile or small stones. A larger stone was noted that was retrieved when the specimen was retrieved. After completing the dissection, there was oozing from the liver bed. This was controlled with clip placement and Surgicel. The specimen and stones were placed to a retrieval bag, retrieved through the subxiphoid port site. The hemostasis in the liver bed was assured and irrigation was performed in the right upper quadrant to clear. The pressure was then removed under direct visualization and carbon dioxide was released. The incisions were closed with 4-0 Vicryl to approximate the skin. Steri- Strips were applied to the upper abdominal wound. The umbilical wound was dressed with DermaFlex. The patient tolerated the procedure well. He was extubated and transferred to recovery room in stable condition. [id number]/[facility] #: [id number] [place]
== END 2017-10-27 12:00 | disposition home or self-care (01) | DRG 419 ==
LOC: ED 02:19 → SSU 06:00 → OBSVTOIN 15:18
PROVIDERS: ADMIT Hospitalist; ATTEND Internal Medicine Geriatric Medicine
PROC: 0FT44ZZ Resection of Gallbladder, Percutaneous Endoscopic Approach (ICD-10-PCS; principal; 2017-10-26 12:00)
DX: K80.00 Calculus of gallbladder with acute cholecystitis without obstruction (principal); I10 Essential (primary) hypertension; E03.9 Hypothyroidism, unspecified; E78.5 Hyperlipidemia, unspecified; R74.8 Abnormal levels of other serum enzymes; E87.6 Hypokalemia; E83.42 Hypomagnesemia; I51.7 Cardiomegaly; Z66 Do not resuscitate; E66.3 Overweight; K76.0 Fatty (change of) liver, not elsewhere classified; Z79.82 Long term (current) use of aspirin; Z79.899 Other long term (current) drug therapy; Z88.1 Allergy status to other antibiotic agents; Z88.0 Allergy status to penicillin; Z91.018 Allergy to other foods; Z81.1 Family history of alcohol abuse and dependence; Z68.29 Body mass index [BMI] 29.0-29.9, adult
CPT/HCPCS: 36415; 76705; 80048; 80053; 82550; 82553; 83036; 83690; 83735; 84484; 85025; 85027; 86140; 87040; 88304; 93005; 93306; 99284; A9270-GY; J0171; J0694; J1170; J1885; J2250; J2270; J2405; J2704; J2710; J2765; J2795; J3010; J3480

== ENCOUNTER 2019-07-29 16:10 | Day surgery (SDC) | payer MEDICARE ==
[~2019-07-29 16:10] MED LIST changes: +Acetaminophen IV 1 GM/100ML 100 ML ONE; -Acetaminophen TAB* 325 MG PO PRN; -Buffered Lidocaine 0.9% SYRIN* 5 ML/SYR SYRINGE INTRADERM ONE; +Clindamycin 900 MG/D5W BAG(*) 900 MG/50 ML BAG IVPB ONE; +Dexamethasone IV 4 MG/ML VIAL 1 ml VIAL ONE; +Glycopyrrolate IV 0.2 MG/ML 1 ML VIAL ONE; +Midazolam 2 mg/2 ml VIAL 1 mg/ml 2 ml VIAL (2 mg) ONE; +Naloxone 0.4 mg VIAL 0.4 mg/ml 1 ml VIAL IV PRN; +Ondansetron 4 mg VIAL 2 MG/ML 2 ml VIAL ONE; +Propofol 10 MG/ML 20 ML BTL ONE; +ROPIVACAINE 5 MG/ML 30 ML BTL (0.5%) ONE; +Rocuronium 50 mg VIAL 10 mg/ml 5 ml VIAL (50 mg) ONE; +fentaNYL 100 mcg/2 ml 50 MCG/ML VIAL ONE
[2019-07-29] MEDS ORDERED: Magnesium Hydroxide LIQ 30 ML UDC PO PRN (16:11)
[2019-07-29] MEDS ORDERED: Ondansetron 4 mg VIAL 2 MG/ML 2 ml VIAL IV PRN (16:11)
[2019-07-29] MEDS ORDERED: Lactulose 30 ml UDC PO PRN (16:11)
[2019-07-29] MEDS ORDERED: diPHENhydraMINE 25 mg TAB PO PRN (16:11)
[2019-07-29] MEDS ORDERED: Ondansetron ODT 4 mg TAB 4 MG TAB PO PRN (16:11)
[2019-07-29] MEDS ORDERED: diPHENhydraMINE IV 50 MG/ML 1 ml VIAL (BENADRYL) IV PRN (16:11)
[2019-07-29] MEDS ORDERED: fentaNYL 100 mcg/2 ml 50 MCG/ML VIAL ONE (16:18)
[2019-07-29] MEDS: fentaNYL 100 mcg/2 ml 50 MCG/ML VIAL IV PRN ×4 (16:25→17:11)
[2019-07-29] MEDS ORDERED: Clindamycin 600 MG/D5W BAG(*) 600 MG/50 ML BAG IV SCH (17:00)
[2019-07-29] MEDS: Lactated Ringers 1000 ml BAG 1,000 ML IV SCH (18:11)
[2019-07-29] MEDS: oxyCODONE/Acetamin 5/325 mg TAB PO PRN (21:51)
[2019-07-29] MEDS: Clindamycin 600 MG/NS BAG(*) 600 MG/50 ML BAG IV SCH (22:27)
[2019-07-29] MEDS: Magnesium Hydroxide LIQ 30 ML UDC PO SCH (22:29)
[2019-07-30] MEDS: oxyCODONE/Acetamin 5/325 mg TAB PO PRN (01:58)
[2019-07-30] MEDS: Lactated Ringers 1000 ml BAG 1,000 ML IV SCH (03:47)
[2019-07-30 06:19] LABS: Hematocrit 32 % (35-47); Hemoglobin 11.1 g/dL (12.0-16.0); Platelet Count 274 10^3/uL (150-450)
[2019-07-30] MEDS: Clindamycin 600 MG/NS BAG(*) 600 MG/50 ML BAG IV SCH ×2 (06:50→14:12)
[2019-07-30 06:51] LABS: BUN/Creatinine Ratio 19.4 (8-20); Calcium 8.3 mg/dL (8.6-10.3); EGFR African American 95.3 (>60); EGFR Non-African American 78.8 (>60); Potassium 3.4 mmol/L (3.5-5.0)
[2019-07-30] MEDS ORDERED: Potassium Chloride LIQUID 20 MEQ/15 ML LIQUID PO ONE (07:24)
[2019-07-30] MEDS ORDERED: Prochlorperazine 5 mg/ml 2 ml VIAL (10 mg) IV PRN (08:29)
[2019-07-30] MEDS ORDERED: Vitamin THERAPEUTIC TAB PO SCH (09:00)
[2019-07-30] MEDS: Magnesium Hydroxide LIQ 30 ML UDC PO SCH (10:25)
[2019-07-30 11:33] VITALS: BP 110/50
== END 2019-07-30 15:32 | disposition home health service (06) | DRG 470 ==
LOC: OBSVTOIN 16:11
PROVIDERS: ADMIT Orthopaedic Surgery Adult Reconstructive Orthopaedic Surgery; ATTEND Hospitalist